=== PATIENT | female | born 1985 | race Caucasian/White ===

== ENCOUNTER → 2019-03-18 | Outpatient (CLI) | payer OTHER ==
[~2019-03-18] MED LIST: HYDROCODONE-APA1 TA1 PO; IBUPROFEN 600600 M1 PO; IBUPROFEN 800800 MG PO; LO LOESTRIN FE1 EACH; ONDANSETRON HCL4 M3 PO; PERCOCET 5-3251 EACH PO; TAMSULOSIN HCL0.4 M1 PO; TRINATE TABLET1 TAB; ZANTAC 150MG T150 MG
[2019-03-18 09:07] LABS: ALBUMIN 3.8 g/dL (3.4-5.0); ALKALINE PHOSPHATASE 61 U/L (46-116); ANION GAP 9 mmol/L (7-16); BUN 8 mg/dL (7-18); CALCIUM 8.2 mg/dL (8.5-10.1); CHLORIDE 104 mmol/L (98-107); CHOLESTEROL 105 mg/dL (<200); CO2 29 mmol/L (21-32); CREATININE 0.7 mg/dL (0.6-1.3); GLUCOSE 98 mg/dL (70-99); HDL CHOLESTEROL 33 mg/dL (>40); LDL CHOLESTEROL 57 mg/dL (<100); POTASSIUM 3.4 mmol/L (3.5-5.1); SERUM ASSESSMENT Clear; SGOT 20 U/L (15-37); SGPT 30 U/L (30-65); SODIUM 142 mmol/L (136-145); TC:HDL 3.2 Ratio (Not establshd); TOTAL BILIRUBIN 0.4 mg/dL (<0.1-1.0); TOTAL PROTEIN 7.4 g/dL (6.4-8.2); TRIGLYCERIDE 76 mg/dL (<150); VLDL 15 mg/dL (<40)
== END ==
LOC: M.LAB 08:26
PROVIDERS: Nurse Practitioner Family
DX: E78.2 Mixed hyperlipidemia (principal); E87.6 Hypokalemia; F43.21 Adjustment disorder with depressed mood

== ENCOUNTER 2019-04-25 22:35 | Emergency (ER) | payer OTHER ==
[~2019-04-25] VITALS: Ht 162.6 cm; Wt 86.2 kg
[2019-04-25] MEDS ORDERED: LIPITOR 20 MG T20 M1 PO (22:43)
[2019-04-25] MEDS ORDERED: TESSALON PERLE100 MG PO (22:43)
[2019-04-25] MEDS ORDERED: ZOLOFT100 MG PO (22:44)
[2019-04-25] MEDS ORDERED: PREDNISONE 5 MG5 M1 PO (22:44)
[2019-04-25] MEDS ORDERED: BUPROPION HCL100 MG PO (22:45)
[2019-04-25] MEDS ORDERED: AZITHROMYCIN500 MG PO (22:45)
[2019-04-25 23:14] LABS: INFLUENZA A ANTIGEN Negative (Negative); INFLUENZA B ANTIGEN Negative (Negative)
[2019-04-26] MEDS ORDERED: PROAIR HFA8.5 GM INH (00:01)
[2019-04-26] MEDS ORDERED: ALBUTEROL2.5 MG/31 INH (00:01)
[2019-04-26 00:13] VITALS: BP 130/66
== END 2019-04-26 00:14 | disposition home or self-care (01) ==
LOC: M.ERS 22:35
PROVIDERS: Emergency Medicine
DX: J40 Bronchitis, not specified as acute or chronic (principal); E78.00 Pure hypercholesterolemia, unspecified; F17.210 Nicotine dependence, cigarettes, uncomplicated

== ENCOUNTER → 2019-06-25 | Outpatient (CLI) | payer OTHER ==
[~2019-06-25] MED LIST changes: +ALBUTEROL2.5 MG/31 INH; +AZITHROMYCIN500 MG PO; +BUPROPION HCL100 MG PO; +KEFLEX500 M1 PO; +LIPITOR 20 MG T20 M1 PO; +PREDNISONE 5 MG5 M1 PO; +PROAIR HFA8.5 GM INH; +TESSALON PERLE100 MG PO; +ZOLOFT100 MG PO
== END ==
LOC: M.LAB 13:16
DX: Z20.828 Contact with and (suspected) exposure to other viral communicable diseases (principal)

== ENCOUNTER 2019-06-30 07:31 | Emergency (ER) | payer OTHER ==
[~2019-06-30] VITALS: Ht 162.6 cm; Wt 90.7 kg
[~2019-06-30 07:31] MED LIST changes: -KEFLEX500 M1 PO
[2019-06-30] MEDS ORDERED: KEFLEX500 M1 PO (08:16)
[2019-06-30 08:32] VITALS: BP 145/73
== END 2019-06-30 08:33 | disposition home or self-care (01) ==
LOC: M.ERS 07:31
DX: S61.011A Laceration without foreign body of right thumb without damage to nail, initial encounter (principal); E78.00 Pure hypercholesterolemia, unspecified; F17.210 Nicotine dependence, cigarettes, uncomplicated; W26.8XXA Contact with other sharp object(s), not elsewhere classified, initial encounter; Y93.89 Activity, other specified; Y92.89 Other specified places as the place of occurrence of the external cause; Y99.8 Other external cause status

== ENCOUNTER 2019-12-29 08:25 | Emergency (ER) | payer OTHER ==
[~2019-12-29] VITALS: Ht 162.6 cm; Wt 90.7 kg
[~2019-12-29 08:25] MED LIST changes: +KEFLEX500 M1 PO
[2019-12-29 08:56] LABS: INFLUENZA A ANTIGEN Negative (Negative); INFLUENZA B ANTIGEN Negative (Negative)
[2019-12-29 09:22] LABS: ABSOLUTE BASOPHILS 0.1 thou/uL (0.0-0.2); ABSOLUTE LYMPHOCYTES 1.2 thou/uL (0.8-5.3); ABSOLUTE MONOCYTES 0.4 thou/uL (0.0-1.2); ABSOLUTE NEUTROPHILS 8.2 thou/uL (1.6-8.1); BASOPHILS 0.5 %; EOSINOPHILS 0.2 %; HEMATOCRIT 37.1 % (37.0-47.0); HEMOGLOBIN 11.9 gm/dL (12.0-15.0); LYMPHOCYTES 12.4 %; MCH 26.4 pg (26.0-34.0); MCHC 32.2 g/dL (28.0-37.0); MONOCYTES 3.6 %; MPV 7.6 fl. (7.2-11.1); NUCLEATED RBCS 0 /100WBC; PLATELET COUNT* 373 thou/uL (150-400); POLYS 83.3 %; RBC 4.52 mil/uL (4.20-5.00); RDW-CV 14.1 % (10.5-14.5); WBC 9.8 thou/uL (4.0-11.0)
[2019-12-29] MEDS ORDERED: ZOFRAN ODT4 MG SUBLING ×2 (09:23)
[2019-12-29 09:29] LABS: CALCIUM 8.5 mg/dL (8.5-10.1); POTASSIUM 3.9 mmol/L (3.5-5.1)
[2019-12-29 09:33] LABS: TOTAL BILIRUBIN 0.5 mg/dL (<0.1-1.0); TOTAL PROTEIN 7.8 g/dL (6.4-8.2)
[2019-12-29 09:45] VITALS: BP 122/80
== END 2019-12-29 09:45 | disposition home or self-care (01) ==
LOC: M.ERS 08:25
PROVIDERS: Family Medicine
DX: B34.9 Viral infection, unspecified (principal); Z20.828 Contact with and (suspected) exposure to other viral communicable diseases; E78.00 Pure hypercholesterolemia, unspecified; F17.210 Nicotine dependence, cigarettes, uncomplicated